=== PATIENT | female | born 1950 | race Caucasian/White ===

== ENCOUNTER 2023-07-18 21:34 | Inpatient (IN) | payer BC, OTHER ==
[~2023-07-18] VITALS: Ht 152.4 cm; Wt 68.0 kg
[~2023-07-18 21:34] MED LIST: ASPI81EC97 PO
[2023-07-18 22:26] VITALS: BP 179/80; PULSE 76; RESP 20; TEMP 98.1; O2SAT 100
[2023-07-18 22:52] LABS: BASOPHILS % (AUTO) 0.2 % (0.0-2.0); EOSINOPHILS % (AUTO) 0.2 % (0.0-4.0); HEMATOCRIT 31.8 % (36-48); HEMOGLOBIN 11.1 g/dL (12.0-16.0); LYMPHOCYTES % (AUTO) 12.5 % (20.5-51.1); MEAN CORPUSCULAR HEMOGLOBIN 30 pg (27-31); MEAN CORPUSCULAR HGB CONC 35 g/dL (33-37); MEAN CORPUSCULAR VOLUME 84.8 fL (80-94); MONOCYTES # (AUTO) 0.4 K/uL (0.8-1.0); MONOCYTES % (AUTO) 4.9 % (1.7-9.3); NEUTROPHILS # (AUTO) 6.7 K/uL (1.8-7.7); NEUTROPHILS % (AUTO) 82.2 % (42.2-75.2); PLATELET COUNT (AUTO) 479 K/uL (140-450); RED BLOOD CELL COUNT(AUTO) 3.75 MIL/uL (4.20-5.40); RED CELL DISTRIBUTION WIDTH 15.3 % (11.6-13.7); WHITE BLOOD COUNT (AUTO) 8.2 K/uL (4.8-10.8)
[2023-07-18] MEDS: NACL 0.9% 1,000 ML IV ONE (23:04)
[2023-07-18 23:15] LABS: ALANINE AMINOTRANSFERASE 30 U/L (12-78); ALBUMIN 3.3 g/dL (3.4-5.0); ALKALINE PHOSPHATASE 98 U/L (50-136); ASPARTATE AMINOTRANSFERASE 20 U/L (15-37); BILIRUBIN,DIRECT 0.1 mg/dL (0.0-0.3); LIPASE 36 U/L (16-77); TOTAL BILIRUBIN 0.4 mg/dL (0.0-1.0)
[2023-07-18 23:19] LABS: APPEARANCE,URINE CLEAR (CLEAR); BILIRUBIN,URINE NEGATIVE (NEGATIVE); BLOOD, URINE 3+ (NEGATIVE); COLOR,URINE YELLOW (YELLOW); LEUKOCYTE ESTERASE ,URINE TRACE (NEGATIVE); NITRITE, URINE NEGATIVE (NEGATIVE); PROTEIN,URINE NEGATIVE (NEGATIVE); UGLUCOSE NEGATIVE (NEGATIVE); UROBILINOGEN,URINE 0.2 EU/dL (0.2 - 1)
[2023-07-18 23:22] LABS: BACTERIA,URINE >30 (MANY) /HPF (None Seen); MUCUS,URINE 1+ /LPF (None Seen); RBC,URINE >20 (MANY) /HPF (0-5); SQUAMOUS EPITHELIAL CELL,UR 0-3 (FEW) /LPF (0-3 (FEW))
[2023-07-18 23:35] LABS: ANION GAP 18.3 (8-16); CHLORIDE 101 mmol/L (98-107); POTASSIUM 3.3 mmol/L (3.5-5.1); SODIUM SERUM 139 mmol/L (136-145)
[2023-07-18] MEDS: MORPHINE SULFATE 4 MG/ML SYR IVP ONE (23:35)
[2023-07-18] MEDS: ONDANSETRON 4 MG/2 ML VIAL IVP ONE (23:35)
[2023-07-18 23:36] LABS: CALCIUM 10.4 mg/dL (8.5-10.1); CREATININE 0.8 mg/dL (0.6-1.3); GLUCOSE 180 mg/dL (74-106); UREA NITROGEN, BLOOD 12 mg/dL (7-18)
[2023-07-19] MEDS ORDERED: cefTRIAXone 1,000 MG VIAL ONE (00:02)
[2023-07-19 00:10] LABS: LACTIC ACID 1.8 mmol/L (0.4-2.0)
[2023-07-19] MEDS ORDERED: MORPHINE SULFATE 2 MG/ML SYR ONE (02:17)
[2023-07-19] MEDS: MORPHINE SULFATE 2 MG/ML SYR IVP ONE (02:20)
[2023-07-19] MEDS ORDERED: METF-346 PO (04:28)
[2023-07-19] MEDS ORDERED: GABA100C PO (04:28)
[2023-07-19] MEDS ORDERED: AMLO-272 PO (04:28)
[2023-07-19] MEDS ORDERED: LOSA-272 PO (04:28)
[2023-07-19 08:00] VITALS: BP 128/77; PULSE 53; PULSE 78; RESP 16; TEMP 98.7; O2SAT 96
[2023-07-19] MEDS: TAMSULOSIN 0.4 MG CAP PO SCH (08:49)
[2023-07-19] MEDS ORDERED: DEXT 5% / NACL 0.9% 500 ML IV SCH (10:55)
[2023-07-19] MEDS: HYDROcodone/APAP 10/325 MG 1 TAB TAB PO PRN (11:22)
[2023-07-19] MEDS: DEXT 5% /NACL 0.9% 1,000 ML IV SCH (11:23)
[2023-07-19 12:54] VITALS: BP 122/70; PULSE 53; PULSE 55; RESP 14; TEMP 97.8; O2SAT 94
[2023-07-19 16:00] VITALS: BP 130/97; PULSE 58; PULSE 66; RESP 16; TEMP 97.5; O2SAT 96
[2023-07-19] MEDS: POTASSIUM CHLORIDE 10 MEQ TABER PO ONE (18:25)
[2023-07-19 20:00] VITALS: BP 118/57; PULSE 61; RESP 16; TEMP 98; O2SAT 94
[2023-07-19] MEDS: cefTRIAXone 1,000 MG VIAL ONE (23:40)
[2023-07-20] VITALS: BP 147/66; PULSE 58; PULSE 63; RESP 16; TEMP 97.7; O2SAT 94
[2023-07-20 04:00] VITALS: BP 152/77; PULSE 59; PULSE 61; TEMP 97.5; O2SAT 95
[2023-07-20 07:02] LABS: BASOPHILS % (AUTO) 0.5 % (0.0-2.0); EOSINOPHILS # (AUTO) 0.2 K/uL (0-0.4); EOSINOPHILS % (AUTO) 2.8 % (0.0-4.0); HEMATOCRIT 33.2 % (36-48); HEMOGLOBIN 11.4 g/dL (12.0-16.0); LYMPHOCYTES # (AUTO) 1.9 K/uL (2.5-16.5); MEAN CORPUSCULAR HEMOGLOBIN 30 pg (27-31); MEAN CORPUSCULAR HGB CONC 34 g/dL (33-37); MEAN CORPUSCULAR VOLUME 86.7 fL (80-94); MONOCYTES # (AUTO) 0.6 K/uL (0.8-1.0); MONOCYTES % (AUTO) 8.7 % (1.7-9.3); NEUTROPHILS # (AUTO) 4.1 K/uL (1.8-7.7); PLATELET COUNT (AUTO) 466 K/uL (140-450); RED BLOOD CELL COUNT(AUTO) 3.83 MIL/uL (4.20-5.40); RED CELL DISTRIBUTION WIDTH 15.7 % (11.6-13.7); WHITE BLOOD COUNT (AUTO) 6.8 K/uL (4.8-10.8)
[2023-07-20 07:31] LABS: ALANINE AMINOTRANSFERASE 26 U/L (12-78); ALBUMIN 2.7 g/dL (3.4-5.0); ALKALINE PHOSPHATASE 90 U/L (50-136); ANION GAP 14.3 (8-16); ASPARTATE AMINOTRANSFERASE 19 U/L (15-37); CALCIUM 9.7 mg/dL (8.5-10.1); CARBON DIOXIDE 24.9 mmol/L (21-32); CHLORIDE 106 mmol/L (98-107); CREATININE 0.7 mg/dL (0.6-1.3); GLUCOSE 111 mg/dL (74-106); POTASSIUM 4.2 mmol/L (3.5-5.1); SODIUM SERUM 141 mmol/L (136-145); TOTAL BILIRUBIN 0.3 mg/dL (0.0-1.0); TOTAL PROTEIN, SERUM 7.2 g/dL (6.4-8.2); UREA NITROGEN, BLOOD 6 mg/dL (7-18)
[2023-07-20 08:00] VITALS: BP 136/60; PULSE 56; PULSE 80; PULSE 82; RESP 18; TEMP 97.7; O2SAT 97
[2023-07-20] MEDS: TAMSULOSIN 0.4 MG CAP PO SCH (10:03)
[2023-07-20] MEDS: GABAPENTIN 100 MG CAP PO SCH (10:04)
[2023-07-20] MEDS: amLODIPine 5 MG TAB PO SCH (10:04)
[2023-07-20] MEDS: LOSARTAN 50 MG TAB PO SCH (10:04)
[2023-07-20 12:00] VITALS: BP 122/53; PULSE 56; PULSE 58; RESP 20; TEMP 97.2; O2SAT 97
[2023-07-20] MEDS ORDERED: TAMS0.4C96 PO (14:41)
[2023-07-20] MEDS ORDERED: NORC10 PO (14:41)
[2023-07-20 16:00] VITALS: BP 128/70; PULSE 85; PULSE 89; RESP 20; TEMP 97.6; O2SAT 96
[2023-07-20 17:04] VITALS: BP 128/70; PULSE 89; RESP 20; TEMP 97.6
== END 2023-07-20 17:50 | disposition home or self-care (01) | DRG 690 ==
LOC: MED 21:34 → MTU 07-19 06:02
PROVIDERS: ADMIT Internal Medicine; ATTEND Internal Medicine
DX: N13.6 Pyonephrosis (principal); E87.20 Acidosis, unspecified; E83.59 Other disorders of calcium metabolism; I10 Essential (primary) hypertension; E11.9 Type 2 diabetes mellitus without complications; J45.909 Unspecified asthma, uncomplicated; N29 Other disorders of kidney and ureter in diseases classified elsewhere; E87.6 Hypokalemia; E78.5 Hyperlipidemia, unspecified; Z88.2 Allergy status to sulfonamides; Z79.899 Other long term (current) drug therapy; Z79.84 Long term (current) use of oral hypoglycemic drugs
CPT/HCPCS: 36415; 80048; 80053; 80076; 81001; 82948; 83605; 83690; 83735; 84484; 85025; 87040; 87081; 87086; 93005; 96361; 96365; 96375; 96376; 99285; J0696; J2270; J2405; J7060